=== PATIENT | male | born 2000 | race Caucasian/White ===

== ENCOUNTER 2020-07-29 11:13 | Outpatient (CLI) | payer OTHER, SELFPAY ==
[2020-07-30 14:25] LABS: SARS-CoV-2 RNA PCR Negative
== END 2020-07-29 11:14 | disposition home or self-care (01) ==
LOC: CHSLAB 11:18
PROVIDERS: PCP Internal Medicine; Visit Provider Internal Medicine
DX: Z20.828 Contact with and (suspected) exposure to other viral communicable diseases (principal)
CPT/HCPCS: 87635; C9803; U0003